=== PATIENT | female | born 1990 | race Caucasian/White ===

== ENCOUNTER 2019-02-19 12:39 | Outpatient (REF) | payer OTHER, SELFPAY ==
--- NOTE | 2019-02-19 11:45 | PAPFT_PTH ---
PATIENT: TRAM MIKE LOC: [facility] U#:[id number] AGE/SX: 28/F ROOM: RE02/19/[address]: Sasha Beebe : 1990 BED: DIS: 02/19/2019 SPEC #: [id number] RECD: 02/19/19 18:16 STATUS: CHICHO RESharon #: [id number] LEAH: 02/19/19 11:[address]: Sasha Beebe DEPT: [facility] Cytology RECD BY: Anat Perez Tissues: 1 - CX/ENDOCX FOR PAP SMEARS Procedures: PAP THIN PREP/[facility] Screening Comments: [id number] (CHLAMYDIA/GC)
[2019-02-20 13:48] LABS: Chlamydia Result Negative; GC Result Negative; Specimen Description SEE COMMENTS
== END 2019-02-19 12:59 ==
LOC: NCHCN 12:39
PROVIDERS: PCP Nurse Practitioner; Visit Provider Nurse Practitioner
DX: Z00.00 Encounter for general adult medical examination without abnormal findings (principal); Z11.3 Encounter for screening for infections with a predominantly sexual mode of transmission; Z12.4 Encounter for screening for malignant neoplasm of cervix; Z11.51 Encounter for screening for human papillomavirus (HPV)
CPT/HCPCS: 87491; 87591; 88142

== ENCOUNTER 2019-08-04 08:22 | Outpatient (CLI) | payer OTHER, SELFPAY ==
--- NOTE | 2019-08-04 09:35 | DI.MAMMO_ITS ---
EXAM: MG MAMMO DIAGNOSTIC BI CLINICAL HISTORY: BREAST LUMP, N63.0. TECHNIQUE: Mammograms were interpreted according to the usual protocol including computer analysis with CAD system, tomosynthesis and C-view imaging. COMPARISON: No exams were available for comparison FINDINGS: The breast tissue is heterogeneously radiodense which lowers the sensitivity of the study. There is no dominant mass. There are no suspicious calcifications. IMPRESSION: No evidence of malignancy, category 1. Follow-up surveillance with risk adjusted and age adjusted [facility] mograms is suggested. This is category C examination for breast density. BI-RADS Cat 1 - Negative. Breast Density - Category C - Heterogeneously dense.
--- NOTE | 2019-08-04 10:07 | DI.US_ITS ---
EXAM: US BREAST LT LIMITED CLINICAL HISTORY: BREAST LUMP, N63.0. TECHNIQUE: Ultrasound performed using standard protocol. COMPARISON: No exams were available for comparison FINDINGS: A 4.7 x 2.9 x 4.4 mm cyst is noted. Echodense tissue is noted about this small cyst. The study is ot herwise unremarkable.
== END 2019-08-04 08:42 ==
PROVIDERS: PCP Nurse Practitioner; Visit Provider Nurse Practitioner Family
DX: N63.20 Unspecified lump in the left breast, unspecified quadrant (principal); N60.02 Solitary cyst of left breast
CPT/HCPCS: 76642; 77062; 77066; G0279